=== PATIENT | female | born 1970 | race Two or more races ===

== ENCOUNTER 2019-09-26 13:13 | Outpatient (CLI) | payer OTHER ==
[~2019-09-26 13:13] MED LIST: ALEGRA PO; CATAFLAM50 MG PO; DAFLONEX-XL TA1 EACH PO; NAPR500T14 PO; NEXIUM40 M1 PO; VASOFLEX FORTE1 CAP PO
== END 2019-09-26 13:19 | disposition home or self-care (01) ==
LOC: SONOGRAMA 13:13 → MAMO-SONO 13:15 → SONOGRAMA 13:19
PROVIDERS: ATTEND Specialist
DX: E04.1 Nontoxic single thyroid nodule (principal)

== ENCOUNTER 2019-11-06 04:49 | Inpatient (IN) | payer OTHER ==
[~2019-11-06 04:49] MED LIST changes: +CLARITIN10 M1 PO; +PREVACID PO; +TOPROL XL50 M1 PO; +ZESTRIL10 M1 PO; +[UNRECOGNIZED DRUG - OTHER] PO
[2019-11-06] MEDS ORDERED: PREMARIN0.45 MG PO (13:09)
[2019-11-06] MEDS ORDERED: PREVACID15 MG PO (13:11)
== END 2019-11-07 09:20 | disposition home or self-care (01) | DRG 627 ==
LOC: CIR.AMB 04:49 → SURH 12:51 → O/R 12:51 → SURH 14:43
PROVIDERS: ADMIT Specialist; ATTEND Specialist
PROC: 0GBP0ZZ Excision of Left Inferior Parathyroid Gland, Open Approach (ICD-10-PCS; principal; 2019-11-06 07:00)
DX: D35.1 Benign neoplasm of parathyroid gland (principal)

== ENCOUNTER 2020-09-09 12:25 | Outpatient (CLI) | payer OTHER ==
[~2020-09-09 12:25] MED LIST changes: +PREMARIN0.45 MG PO; +PREVACID15 MG PO
== END 2020-09-09 12:28 | disposition home or self-care (01) ==
LOC: MAMO-SONO 12:25
PROVIDERS: ATTEND Internal Medicine Cardiovascular Disease
DX: N64.59 Other signs and symptoms in breast (principal); Z12.31 Encounter for screening mammogram for malignant neoplasm of breast; Z87.898 Personal history of other specified conditions

== ENCOUNTER 2020-11-26 13:15 | Outpatient (CLI) | payer OTHER | END 2020-11-26 13:19 | disposition home or self-care (01) | LOC: NUCLEAR 13:15 | PROVIDERS: ATTEND Obstetrics & Gynecology | DX: M81.0 Age-related osteoporosis without current pathological fracture (principal) ==